=== PATIENT | female | born 1950 | race Caucasian/White ===

== ENCOUNTER → 2021-07-23 | Outpatient (CLI) | payer MEDICARE, OTHER | LOC: CT 14:25 | DX: C19 Malignant neoplasm of rectosigmoid junction (principal); H10.33 Unspecified acute conjunctivitis, bilateral; Z51.11 Encounter for antineoplastic chemotherapy; Z85.3 Personal history of malignant neoplasm of breast | CPT/HCPCS: 71260; Q9967 ==